=== PATIENT | female | born 1970 | race Caucasian/White ===

== ENCOUNTER 2020-06-09 23:38 | Emergency (ER) | payer OTHER ==
--- OUTSIDE RECORDS SUMMARY | 2020-06-09 23:42 | XMS REPORT | Clinical Summary ---
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 and body mass index (BMI) of 38.0 to 38.9 in adult (H CC) Hiatal hernia Essential hypertension Type 2 diabetes mellitus without complication, without long-term current use of insulin (HCC) Hypothyroidism, unspecified type PROTHROMBIN TIME WITH Routine 10/27/2019 9:46 Class 2 severe Results for this INR AM MOLD REPAIRER obesity due to procedure are in excess calories with the res ults serious comorbidity section. and body mass index (BMI) of 38.0 to 38.9 in adult (H CC) Hiatal hernia Essential hypertension Type 2 diabetes mellitus without complication, without long-term current use of insulin (HCC) Hypothyroidism, unspecified type CBC WITH PLATELET AND Routine 10/27/2019 9:46 Class 2 severe Results for this DIFFERENTIAL AM MOLD REPAIRER obesity due to procedure are in excess calories with the res ults serious comorbidity section. and body mass index (BMI) of 38.0 to 38.9 in adult (H CC) Hiatal hernia Essential hypertension Type 2 diabetes mellitus without complication, without long-term current use of insulin (HCC) Hypothyroidism, unspecified type PARATHYROID HORMONE Routine 10/27/2019 9:46 Class 2 severe Re sults for this AM MOLD REPAIRER obesity due to procedure are in excess calories with the res ults serious comorbidity section. and body mass index (BMI) of 38.0 to 38.9 in adult (H CC) Hiatal hernia Essential hypertension Type 2 diabetes mellitus without complication, without long-term current use of insulin (HCC) Hypothyroidism, unspecified type HEMOGLOBIN A1C Routine 10/27/2019 9:46 Class 2 severe Results for this AM MOLD REPAIRER obesity due to procedure are in excess calories with the res ults serious comorbidity section. and body mass index (BMI) of 38.0 to 38.9 in adult (H CC) Hiatal hernia Essential hypertension Type 2 diabetes mellitus without complication, without long-term current use of insulin (HCC) Hypothyroidism, unspecified type THYROID STIMULATING Routine 10/27/2019 9:46 Class 2 severe Re sults for this HORMONE AM MOLD REPAIRER obesity due to procedure are in excess calories with the res ults serious comorbidity section. and body mass index (BMI) of 38.0 to 38.9 in adult (H CC) Hiatal hernia Essential hypertension Type 2 diabetes mellitus without complication, without long-term current use of insulin (HCC) Hypothyroidism, unspecified type T4, FREE Routine 10/27/2019 9:46 Class 2 severe Results f or this AM MOLD REPAIRER obesity due to procedure are in excess calories with the res ults serious comorbidity section. and body mass index (BMI) of 38.0 to 38.9 in adult (H CC) Hiatal hernia Essential hypertension Type 2 diabetes mellitus without complication, without long-term current use of insulin (HCC) Hypothyroidism, unspecified type TOTAL IRON BINDING Routine 10/27/2019 9:46 Class 2 severe Res ults for this CAPACITY AM MOLD REPAIRER obesity due to procedure are in excess calories with the res ults serious comorbidity section. and body mass index (BMI) of 38.0 to 38.9 in adult (H CC) Hiatal hernia Essential hypertension Type 2 diabetes mellitus without complication, without long-term current use of insulin (HCC) Hypothyroidism, unspecified type HCG QUALITATIVE, SERUM Routine 10/27/2019 9:46 Class 2 severe Results for this SCREEN AM MOLD REPAIRER obesity due to procedure are in excess calories with the res ults serious comorbidity section. and body mass index (BMI) of 38.0 to 38.9 in adult (H CC) Hiatal hernia Essential hypertension Type 2 diabetes mellitus without complication, without long-term current use of insulin (HCC) Hypothyroidism, unspecified type LIPID PANEL Routine 10/27/2019 9:46 Class 2 severe Results f or this AM MOLD REPAIRER obesity due to procedure are in excess calories with the res ults serious comorbidity section. 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 and body mass index (BMI) of 38.0 to 38.9 in adult (H CC) Hiatal hernia Essential hypertension Type 2 diabetes mellitus without complication, without long-term current use of insulin (HCC) Hypothyroidism, unspecified type FERRITIN LEVEL Routine 10/27/2019 9:46 Class 2 severe Results for this AM MOLD REPAIRER obesity due to procedure are in excess calories with the res ults serious comorbidity section. and body mass index (BMI) of 38.0 to 38.9 in adult (H CC) Hiatal hernia Essential hypertension Type 2 diabetes mellitus without complication, without long-term current use of insulin (HCC) Hypothyroidism, unspecified type after 06/09/2019 Results Total iron binding capacity (03/28/2020 9:24 AM CDT)Only the most recent of2 resultswithin the time period is included. Pathologist Sig nature Iron level 87 40 - 190 mcg/dL [facility] Iron binding capacity 329 250 - 450 mcg/dL [facility] (calc) [facility] Iron saturation 26 16 - 45 % (calc) [facility] Specimen Blood Narrative Performed At FASTING:YES [facility] FASTING: YES Resulting Agency Comment Performing Organization Information: Site ID: RGA Name: [facility] Address: [address] [place] [phone] Director: Andrae Miguel Performing Organization Address City/State/ZIP Code Phon e Number [facility] [address] [address] Copper level, serum (03/28/2020 9:24 AM CDT)Only the most recent of2 results within the time period is included. Copper 93 70 - 175 [facility] Comment: mcg/dL ROLANDO MCCABE This test was developed and its analytical performance characteristics have been determined by [facility] [employer]. It has not been cleared or approved by [facility] FDA. This assay has been validated pursuant to the CLI A regulations and is used for clinical purposes. Specimen Blood Narrative Performed At FASTING:YES [facility] FASTING: YES Resulting Agency Comment Performing Organization Information: Site ID: [facility] Name: [facility] Address: [address] [phone] Director: Vishnu Goodman M.D., Ph. D Performing Organization Address [facility] Phon e Number [employer] [phone] [place] [address] [place] Vitamin B1 level, whole blood (03/28/2020 9:24 AM CDT)Only the most recent of2 resultswithin the time period is included. [facility] Vitamin B1, 169 78 - 185 [facility] whole blood Comment: nmol/L ROLANDO MCCABE Vitamin supplementation within 24 hours prior to blood draw may affect the accuracy of results. This test was developed and its analytical performance characteristics have been determined by [employer]. It has not been cleared or approved by [facility]. This assay has been validated pursuant to the CLI A regulations and is used for clinical purposes. Specimen Blood Narrative Performed At FASTING:YES [facility] FASTING: YES Resulting Agency Comment Performing Organization Information: Site ID: [facility] Name: [facility] Address: [address] [place] [address] Director: Vishnu Goodman M.D., Ph. D Performing Organization Address [facility] Phon e Number [employer] [phone] [place] [address] [place] Zinc level, serum (03/28/2020 9:24 AM CDT)Only the most recent of2 results within the time period is included. Zinc 72 60 - 130 [facility] Comment: mcg/dL ROLANDO MCCABE This test was developed and its analytical performance characteristics have been determined by [facility]. It has not been cleared or approved by [facility] FDA. This assay has been validated pursuant to the CLI A regulations and is used for clinical purposes. Specimen Blood Narrative Performed At FASTING:YES [facility] FASTING: YES Resulting Agency Comment Performing Organization Information: Site ID: [facility] Name: [facility]ancy chicas Address: [address] [place] [address] Director: Vishnu Goodman M.D., Ph. D Performing Organization Address [facility] Phon e Number [email or web address] [phone] [place] [address] [place] Vitamin A level, plasma or serum (03/28/2020 9:24 AM CDT)Only the most recent of2 resultswithin the time period is included. Pathologist [facility] Vitamin A 44 38 - 98 [facility] joiz (retinol) Comment: mcg/dL ROLANDO MCCABE Clin Chem Vol. 34.No.8. [id number]. 1998 Vitamin supplementation within 24 hours prior to blood draw may affect the accuracy of results. This test was developed and its analytical performance characteristics have been determined by [employer]. It has not been cleared or approved by [facility] FDA. This assay has been validated pursuant to the CLI A regulations and is used for clinical purposes. Specimen Blood Narrative Performed At FASTING:YES [facility] FASTING: YES Resulting Agency Comment Performing Organization Information: Site ID: [facility] Name: [facility]Cj[facility]rellanadarci chicas Address: [address] [place] [address] Director: Vishnu Goodman M.D., Ph. D Performing Organization Address [facility] Phon e Number [employer] [place] [address] [place] [address] [place] Vitamin D 25 hydroxy level (03/28/2020 9:24 AM CDT)Only the most recent of2 resultswithin the time period is included. Pathologist [facility] Vitamin D, 52 30 - 100 [facility] 25-hydroxy Comment: ng/mL PASTOR Vitamin D Status 25-OH Vitamin D: Deficiency: <20 ng/mL Insufficiency: 20 - 29 ng/mL Optimal: > or = 30 ng/mL For 25-OH Vitamin D testing on patients on D2-supplementation and patients for whom quantitation of D2 and D3 fractions is required, the [facility](T M) 25-OH VIT D, (D2,D3), LC/MS/MS is recommended: order code 30608 (patients >2yrs). See Note 1 Note 1 For additional information, please refer to http://education.[employer]/faq/LRV482 (This link is being provided for informational/ educational purposes only.) Specimen Blood Narrative Performed At FASTING:YES [facility] FASTING: YES Resulting Agency Comment Performing Organization Information: Site ID: [facility]GA Name: [facility] Address: [address] [place] [phone] Director: Andrae Miguel Performing Organization Address City/State/ZIP Code Phon e Number [employer] [place] [address] [place] [address] CBC with platelet and differential (03/28/2020 9:24 AM CDT)Only the most recent of5 resultswithin the time period is included. Pathologist Sig nature WBC 6.0 3.8 - 10.8 [facility] Thousand/uL [place] RBC 5.09 3.80 - 5.10 [facility] Million/uL [place] HGB 14.6 11.7 - 15.5 [facility] g/dL [place] HCT 44.5 35.0 - 45.0 % [facility] MCV 87.4 80.0 - 100.0 fL [facility] [place] MCH 28.7 27.0 - 33.0 pg [facility] [place] MCHC 32.8 32.0 - 36.0 [facility] g/dL [place] RDW 14.2 11.0 - 15.0 % [facility] Platelet count 187 140 - 400 [facility] Thousand/uL [place] MPV 12.5 7.5 - 12.5 fL [facility] Neutrophils, absolute 3,774 1,500 - 7,800 [facility] cells/uL [place] Lymphocytes, absolute 1,452 850 - 3,900 [facility] cells/uL [place] Monocytes, absolute 612 200 - 950 [facility] cells/uL [place] Eosinophils, absolute 120 15 - 500 [facility] cells/uL [place] Basophils, absolute 42 0 - 200 [facility] cells/uL [place] Neutrophils 62.9 % [facility] [place] Lymphocytes 24.2 % [facility] [place] Monocytes 10.2 % [facility] [place] Eosinophils 2.0 % [facility] [place] Basophils + RC 0.7 % [facility] Specimen Blood Narrative Performed At FASTING:YES [facility] FASTING: YES Resulting Agency Comment Performing Organization Information: Site ID: RGA Name: [facility] Address: [address] [place] [phone] Director: Andrae Miguel Performing Organization Address [facility] Phon e Number [place] [address] T3 (03/28/2020 9:24 AM CDT)Only the most recent of2 resultswithin the time period is included. Pathologist Sig nature T3 119 76 - 181 ng/dL [facility] [place] Specimen Blood Narrative Performed At FASTING:YES [facility] FASTING: YES Resulting Agency Comment Performing Organization Information: Site ID: [facility] Name: [facility] Address: [address] [place] [phone] Director: Andrae Miguel Performing Organization Address [facility] Phon e Number [employer] [place] [phone] Thyroid stimulating hormone (03/28/2020 9:24 AM CDT)Only the most recent of2 resultswithin the time period is included. Pathologist Sig nature TSH 2.57 mIU/L [facility] Comment: [place] Reference Range > or = 20 Years 0.40-4.50 Ranges First trimester 0.26-2.66 Second trimester 0.55-2.73 Third trimester 0.43-2.91 Specimen Blood Narrative Performed At FASTING:YES [facility] FASTING: YES Resulting Agency Comment Performing Organization Information: Site ID: A Name: [facility] Address: [address] [place] [phone] Director: Andrae Miguel Performing Organization Address [facility] Phon e [place] [address] T4, free (03/28/2020 9:24 AM CDT)Only the most recent of2 resultswithin the time period is included. Pathologist Sig nature T4, free 1.0 0.8 - 1.8 ng/dL [facility] DEETH Specimen Blood Narrative Performed At FASTING:YES [facility] FASTING: YES Resulting Agency Comment Performing Organization Information: Site ID: RGA Name: [facility] Address: [address] [place] [address] Director: Andrae Miguel Performing Organization Address City/[facility] Phon e Number LIN[facility] [employer] [employer] [place] DE[place] [address] [place] [address] Parathyroid hormone (03/28/2020 9:24 AM CDT)Only the most recent of2 results within the time period is included. PTH 19 14 - 64 pg/mL [facility] Comment: [employer] SolutionsSOFIA G II Interpretive Guide Intact PTH Calc ium ---- --- Normal Parathyroid Normal No rmal Hypoparathyroidism Low or Low Normal Low Hyperparathyroidism Primary Normal or High H igh Secondary High Normal or Low Tertiary High High Non-Parathyroid Hypercalcemia Low or Low Normal High Specimen Blood Narrative Performed At FASTING:YES [facility] FASTING: YES Resulting Agency Comment Performing Organization Information: Site ID: IG Name: [facility] Address: [address] [place] [address] Director: Dr. Andrae musa Performing Organization Address [facility] Phon e Number [address] [address] Hemoglobin A1c (03/28/2020 9:24 AM CDT)Only the most recent of2 resultswithin the time period is included. Hemoglobin A1C 5.6 <5.7 % of [facility] Comment: total Hgb PASTOR For the purpose of screening for the presence of diabetes: <5.7% Consistent with the absence of diabetes 5.7-6.4% Consistent with increased risk for diabe shavon (prediabetes) > or =6.5% Consistent with diabetes This assay result is consistent with a decreased risk of diabetes. Currently, no consensus exists regarding use of hemoglobin A1c for diagnosis of diabetes in children. According to [place] Diabetes Association (ADA) guidelines, hemoglobin A1c <7.0% represents optimal control in non- diabetic patients. Different metrics may apply to specific patient populations. Standards of Medical Care in Diabetes(ADA). Specimen Blood Narrative Performed At FASTING:YES [facility] FASTING: YES Resulting Agency Comment Performing Organization Information: Site ID: RGA Name: [facility] Address: [address] [place], [place] [id number] Director: Andrae Miguel Performing Organization Address [facility] Phon e Number [facility] [address] Folate level (03/28/2020 9:24 AM CDT)Only the most recent of2 resultswithin the time period is included. Pathologist Sig nature Folate >24.0 ng/mL [facility] Comment: DE[place] Reference Rang e Low: <3.4 Borderline: 3.4-5.4 Normal: >5.4 Specimen Blood Narrative Performed At FASTING:YES [facility] FASTING: YES Resulting Agency Comment Performing Organization Information: Site ID: [facility] Name: [facility] Address: [address] [place] [phone] Director: Andrae Miguel Performing Organization Address [facility] Phon e [place] [address] Ferritin level (03/28/2020 9:24 AM CDT)Only the most recent of2 resultswithin the time period is included. Pathologist Sig nature Ferritin level 51 16 - 232 ng/mL [facility] [place] Specimen Blood Narrative Performed At FASTING:YES [facility] FASTING: YES Resulting Agency Comment Performing Organization Information: Site ID: RGA Name: [facility] Address: [address] [place] [phone] Director: Andrae Miguel Performing Organization Address [facility] Phon e Number [place] [address] Vitamin B12 level (03/28/2020 9:24 AM CDT)Only the most recent of2 results within the time period is included. Pathologist Sig nature Vitamin B12 426 200 - 1,100 pg/mL [facility] [place] Specimen Blood Narrative Performed At FASTING:YES [facility] FASTING: YES Resulting Agency Comment Performing Organization Information: Site ID: [facility]GA Name: [facility] Address: [address] [place] [phone] Director: Andrae Miguel Performing Organization Address City/[facility] Phon e Number [facility] [place] [address] [place] [address] [phone] Lipid panel (03/28/2020 9:24 AM CDT)Only the most recent of2 resultswithin the time period is included. Pathologist [facility] Cholesterol, total 149 <200 mg/dL [facility] HDL cholesterol 33 (L) > OR = 50 [facility] mg/dL DE[facility] Triglycerides 125 <150 mg/dL [facility] [facility] LDL cholesterol 93 mg/dL (calc) [facility] calculated Comment: DEETH Reference range: <100 Desirable range <100 mg/dL for primary prevention; <70 mg/dL for patients with CHD or diabetic patients with > or = 2 CHD risk factors. LDL-C is now calculated using the Pradip calculation, which is a validated novel method providi ng better accuracy than the Friedewald equation in the estimation of LDL-C. Jeremiah MCGUIRE et al. KATIANA. 2013;310(19): 8090-1597 (http://education.[employer]/faq/WAM879) Cholesterol/HDL 4.5 <5.0 (calc) [facility] ratio DEETH Non-HDL cholesterol 116 <130 mg/dL [facility] Comment: (calc) DEETH For patients with diabetes plus 1 major ASCVD risk factor, treating to a non-HDL-C goal of <100 mg/dL (LDL-C of <70 mg/dL) is considered a therapeutic option. Specimen Blood Narrative Performed At FASTING:YES [facility] FASTING: YES Resulting Agency Comment Performing Organization Information: Site ID: [facility] Name: [facility] Address: [address] [place] [phone] Director: Andrae Miguel Performing Organization Address City/State/[facility] Phon e Number [employer] [place] [address] [place] [address] [phone] Comprehensive metabolic panel (03/28/2020 9:24 AM CDT)Only the most recent of2 resultswithin the time period is included. Pathologist [facility] Glucose 95 65 - 99 [facility] Comment: mg/dL DEETH Fasting reference interval BUN 12 7 - 25 mg/dL [facility] Creatinine 0.83 0.50 - 1.10 [facility] mg/dL [facility] EGFR Non-Afr. 83 > OR = 60 [facility] Malaysian mL/min/1.73m DEETH 2 EGFR 96 > OR = 60 [facility] Malaysian mL/min/1.73m DEETH 2 BUN/creatinine NOT APPLICABLE 6 - 22 [facility] ratio (calc) DE[facility] Sodium 140 135 - 146 [facility] mmol/L [facility] Potassium 4.1 3.5 - 5.3 [facility] mmol/L [facility] Chloride 108 98 - 110 [facility] mmol/L [facility] CO2 24 20 - 32 [facility] mmol/L [facility] Calcium 9.6 8.6 - 10.2 [facility] mg/dL [facility] Protein 6.6 6.1 - 8.1 [facility] g/dL [facility] Albumin, S 3.9 3.6 - 5.1 [facility] g/dL [facility] Globulin, total 2.7 1.9 - 3.7 [facility] g/dL (calc) DE[facility] Albumin/globulin 1.4 1.0 - 2.5 [facility] ratio (calc) [facility] Total bilirubin 0.4 0.2 - 1.2 [facility] mg/dL DE[facility] Alkaline 72 31 - 125 U/L [facility] phosphatase DEETH AST 16 10 - 35 U/L [facility] DE[facility] ALT 24 6 - 29 U/L [facility] DE[facility] Specimen Blood Narrative Performed At FASTING:YES [facility] FASTING: YES Resulting Agency Comment Performing Organization Information: Site ID: RGA Name: [facility] Address: [address] [place] [phone] Director: Andrae Miguel Performing Organization Address City/[facility] [place] [address] XR Shoulder 2+ Vw Right (02/02/2020 8:36 AM CDT) Specimen Narrative Performed At This result has an attachment that is no t available. Three-view projection of the right shoulder shows a skeletally mature HM RADIANT individual with 14 mm of subacromial space and a type I acromion. The AC joint is well-maintained. The Y-view shows a locatio n of the joint with no evidence of any glenohumeral erosions on the transa xillary view. Performing Organization Address City/[facility]/ZIP Code Phon e Number LEISA [address] [place] [address] Estimated GFR (01/07/2020 5:22 AM CDT)Only the most recent of3 resultswithin the time period is included. Estimated GFR 86 mL/min/1.73 [facility] Comment: m2 [place] Catergory Units Interpretation [facility]OS [facility]ITAL G1 >=90 Normal or high G2 60-89 Mildly decreased G3a 45-59 Mildly to moderately decreas ed G3b 30-44 Moderately to severely decre ased G4 15-29 Severely decreased G5 <15 Kidney failure The eGFR was calculated using the Chronic Kidney Disea se Epidemiology Collaboration (CKD-EPI) equation. Interpretation is based on recommendations of the National Kidney Foundation-Kidney Disease Outcomes Alejandro lity Initiative (NKF-KDOQI) published in 2014. Specimen Performing Organization Address [facility] Phon e Number [facility] DEPARTMENT OF PATHOLOGY AND [address] [place] [address] Basic metabolic panel (01/07/2020 5:22 AM CDT)Only the most recent of3 results within the time period is included. Pathologist Sig nature Sodium 141 135 - 148 mEq/L [facility] Potassium 4.3 3.5 - 5.0 mEq/L [facility] Chloride 104 98 - 112 mEq/L [facility] CO2 24 24 - 31 mEq/L [facility] Anion gap 13@ANIO 7 - 15 mEq/L [facility] BUN 12 6 - 20 mg/dL [facility] Creatinine 0.80 0.50 - 0.90 mg/dL [facility] Glucose 117 (H) 65 - 99 mg/dL [facility] Calcium 8.6 8.3 - 10.2 mg/dL [facility] Specimen Blood Performing Organization Address [facility] Phon e Number [facility]Y AND [address] [place] [address] [place] [address] POC glucose (01/06/2020 12:44 PM CDT)Only the most recent of2 resultswithin the time period is included. Pathologist Sig nature POC glucose 169 (H) 65 - 99 mg/dL KEV PENDLETON Comment: [facility] Glass Cleaning Machine Tender Name: Kimberly Traylor Device ID: [id number] Specimen Blood Performing Organization Address [facility] Phon e Number [facility] DEPARTMENT OF PATHOLOGY AND [id number] [place] [id number] [place] [address] Airway (01/06/2020 7:35 AM CDT) Narrative Performed At Toña Bailey NP 01/06/2020 7:36 AM Airway Performed by: Toña Bailey NP Authorized by: Steven Dunne MD Location: OR Urgency: Elective Difficult Airway: No Anesthesiologist: Steven Dunne MD Resident/[employer]/AA: Toña Bailey NP Performed by: resident/[employer]/AA Preoxygenated with 100% O2: Yes Mask Ventilation: Easy mask Final Airway Type: Endotracheal airway Final Endotracheal Airway: ETT Technique Used: Direct laryngoscopy Devices/Methods Used in Placement: Int ubating stylet Insertion Site: Oral Blade Type: Aguilar Laryngoscope Blade/Videolaryngoscope Pedro de Size: 2 ETT Size (mm): 7.0 Measured from: Lips ETT to Lips (cm): 21 Placement Verified by: CO2 detection, di rect visualization and equal breath sounds Laryngoscopic view: Grade IIb - view o f arytenoids or posterior of glottis only Rapid Sequence Induction (RSI): No Number of Attempts at Approach: 1 hCG qualitative, urine screen (01/06/2020 6:14 AM CDT) hCG qualitative, Negative Negative KEV PENDLETON urine Comment: [place] The manufacturers stated sensitivity of HcG test for s jhonathan is >/= 10 HOSPITAL mIU/ml and urine is >/= 20mIU/ml. Specimen Urine Performing Organization Address [facility] Phon e Number [facility] DEPARTMENT OF PATHOLOGY AND [id number] [place] [address] [place] [address] [facility] MEDICINE [facility] [address] COVID BioRef (NCOVB) (12/28/2019 2:25 PM CDT) COVID BioRef Not Detected Not Detected BigpointST. MARY'S HOSPITALFlypad [facility] (NCOVB) Comment: Source Nasopharyngeal Swab Testing performed at [facility] [address] [place] [address] NOTE: Please consider re-collection of a new specimen, if clinically indicated. NOTE: The COVID-19 assay has been cleared by the U.S. Food and Drug Administration under the Emergency Use Authorization ( EUA). [employer] northeastPipelinefx [facility] is designated as a high complexity labora tory by the Clinical Laboratory Improvement Amendments of 1988(CLIA) and is qualified to perform this test. ASSAY INFORMATION: Real Time RT-PCR Specimen Nasopharyngeal Narrative Performed At Is this for pre-procedure assessment?->Yes [facility] OF PATHOLOGY AND GENOMIC MEDICINE Performing Organization Address City/[facility]/ZIP Code Phon e Number [facility] DEPARTMENT OF PATHOLOGY [address] [place] [address] AND [employer] MEDICINE [facility] [address] [place] [address] ECG 12 lead (12/28/2019 2:11 PM CDT) Pathologist Sig nature Ventricular rate 95 [facility] Atrial rate 95 [facility] MA interval 150 [facility] QRSD interval 72 [facility] QT interval 352 [facility] QTC interval 442 [facility] P axis 1 31 [facility] QRS axis 1 2 [facility] T wave axis 40 [facility] EKG impression Normal sinus rhythm-Low [facility] voltage QRS-Cannot rule out Anterior infarct , age undetermined-Abnormal ECG-No previous ECGs available-Electronicall y Signed By Mendoza Donaldson MD ([id number]) on 12/28/2019 5:04:01 PM Specimen Narrative Performed At This result has an attachment that is no t available. Performing Organization Address City/State/ZIP Code Phon e Number [facility] MUSE [address] [place] [address] Type and screen (12/28/2019 1:55 PM CDT) Pathologist Sig nature ABO grouping O [facility] Rh type POS [facility] Antibody screen (gel) NEG [facility] Specimen Blood Performing Organization Address City/State/ZIP Code Phon e Number [facility] DEPARTMENT OF PATHOLOGY AND [address] [place] [address] [place] [address] GENOMIC MEDICINE [facility] [address] [place] [address] [facility] Referral to Weight Management-Bariatric Services (11/11/2019 1:55 PM CDT)US Abdomen Complete (11/02/2019 8:08 AM CDT) Specimen Narrative Performed At EXAM: US ABDOMEN COMPLETE RADIANT TECHNIQUE: Grayscale and color Doppler sonographic sourav luation of the abdomen. GIVEN INDICATION: E66.01 Morbid (severe) obesity due to excess calories, Z68.38 Body mass index (bmi) 38.0-38.9 gerry lt, Cirrhosis or Fatty Liver COMPARISON: None. IMPRESSION: Liver: The liver is normal in contour and echogenicity without focal mass or intrahepatic biliary ductal dilatation. Subcen timeter left hepatic lobe cyst. Ascites: None. Right pleural effusion: None Gallbladder: There is no cholelithiasis. CBD: The common bile duct measures 5 m m, within normal limits. Portal vein: The portal vein is patent with hepatopeta l flow. The main portal vein measures 1.0 cm in caliber. Pancreas: The visualized portions of the pancreas ar e within normal limits. Spleen: The spleen is homogeneous and not enlarged measuring 10.1 cm. Right Kidney: The right kidney is normal in size and echogenicity. There is no evidence of mass, calculi, or hydronephros is. The right kidney measures 9.4 cm. Left Kidney: There is a 2.2 cm simple left renal cys t. The left kidney measures 10.1 cm. Aorta: Obscured by bowel gas. IVC: The visualized portions of the inferior vena ca va are unremarkable. SUMMARY: Liver is normal in contour and echogenic ity. [facility]-[id number] Procedure Note Interface, Radiology Results Incoming - 11/02/2019 8:21 AM CDT EXAM: US ABDOMEN COMPLETE TECHNIQUE: Grayscale and color Doppler s onographic evaluation of the abdomen. GIVEN INDICATION: E66.01 Morbid (severe ) obesity due to excess calories, Z68.38 Body mass index (bmi) 38.0-38.9 adult, Cirrhosis or Fatty Liver COMPARISON: None. IMPRESSION: Liver: The liver is normal in contour an d echogenicity without focal mass or intrahepatic biliary ductal dilatation. Subcentimeter left hepatic lobe cyst. Ascites: None. Right pleural effusion: None Gallbladder: There is no cholelithiasis. CBD: The common bile duct measures 5 mm , within normal limits. Portal vein: The portal vein is patent w ith hepatopetal flow. The main portal vein measures 1.0 cm in caliber. Pancreas: The visualized portions of th e pancreas are within normal limits. Spleen: The spleen is homogeneous and n ot enlarged measuring 10.1 cm. Right Kidney: The right kidney is kat l in size and echogenicity. There is no evidence of mass, calculi, or hydronephrosis. The right kidney measures 9.4 cm. Left Kidney: There is a 2.2 cm simple l eft renal cyst. The left kidney measures 10.1 cm. Aorta: Obscured by bowel gas. IVC: The visualized portions of the inf erior vena cava are unremarkable. SUMMARY: Liver is normal in contour and echogenic ity. [facility]-[id number] Performing Organization Address City/[facility]/ZIP Code Phon e Number [facility] [address] [place] [address] Insulin, random (10/27/2019 9:46 AM MOLD REPAIRER) Pathologist Sig nature Insulin 17.8 uIU/mL [facility] Comment: Stem Reference Range < or = 19.6 II Risk: Optimal < or = 19.6 Moderate NA High >19.6 Adult cardiovascular event risk category cut points (optimal, moderate, high) are based on [employer] population data from 07/2011. This insulin assay shows strong cross-reactivity for some insulin analogs (lispro, aspart, and glargine) and much lower cross-reactivity with others (detemir, glulisine). Specimen Blood Narrative Performed At FASTING:YES [facility] FASTING: YES Resulting Agency Comment Performing Organization Information: Site ID: [id number] Name: [facility] Address: [address] [place] [address] Director: Dr. Andrae musa Performing Organization Address City/[facility] Phon e Number [facility] [address] [place] [place] [address] [phone] Urinalysis, automated with microscopy (10/27/2019 9:46 AM MOLD REPAIRER) Color, UA YELLOW YELLOW [employer] DEETH Appearance CLEAR CLEAR [facility] DEETH Specific gravity, 1.017 1.001 - 1.035 [facility] urine DEETH pH, urine 8.0 5.0 - 8.0 [facility] DEETH Glucose, urine NEGATIVE NEGATIVE [facility] DEETH Bilirubin, UA NEGATIVE NEGATIVE [facility] DEETH Ketones, UA NEGATIVE NEGATIVE [facility] DEETH Occult blood, urine NEGATIVE NEGATIVE [facility] DEETH Protein, UA NEGATIVE NEGATIVE [facility] DEETH Nitrite, UA NEGATIVE NEGATIVE [facility] DEETH Leukocyte esterase, NEGATIVE NEGATIVE [facility] UA DEETH WBC, UA NONE SEEN < OR = 5 /HPF [facility] DEETH RBC, UA NONE SEEN < OR = 2 /HPF [facility] DEETH Squamous epithelial 0-5 < OR = 5 /HPF [facility] cells, UA DEETH Bacteria, UA NONE SEEN NONE SEEN /HPF [facility] DEETH Hyaline casts, UA NONE SEEN NONE SEEN /LPF [facility] DEETH Specimen Urine Narrative Performed At FASTING:YES [facility] FASTING: YES Resulting Agency Comment Performing Organization Information: Site ID: [id number] Name: [facility] Address: [address] [place] [phone] Director: Andrae Miguel Performing Organization Address [facility] [place] [address] Partial thromboplastin time, activated (10/27/2019 9:46 AM MOLD REPAIRER) PTT 29 22 - 34 sec [employer] Comment: DEETH This test has not been validated for monitoring unfractionated heparin therapy. For testing that is validated for this type of therapy, please refer to the Heparin Anti-Xa assay (test code 21037). For additional information, please refer to http://education.[employer]/faq/OXN160 (This link is being provided for informational/educational purposes only.) Specimen Blood Narrative Performed At FASTING:YES [facility] FASTING: YES Resulting Agency Comment Performing Organization Information: Site ID: [id number] Name: [facility] Address: [address] [place] [phone] Director: Andrae Miguel Performing Organization Address [facility] [place] [address] Prothrombin time with INR (10/27/2019 9:46 AM MOLD REPAIRER) INR 0.9 [facility] Comment: DEETH Reference Range 0.9-1.1 Moderate-intensity Warfarin Therapy 2.0-3.0 Higher-intensity Warfarin Therapy 3.0-4.0 Prothrombin time 9.6 9.0 - 11.5 [facility] Comment: [place] KEV For more information on this test, go to: http://education.[employer]/faq/QQA819 Specimen Blood Narrative Performed At FASTING:YES [facility] FASTING: YES Resulting Agency Comment Performing Organization Information: Site ID: [id number] Name: [facility] Address: [address] [place] [phone] Director: Andrae Miguel Performing Organization Address City/[facility] [place] [address] C-reactive protein (10/27/2019 9:46 AM MOLD REPAIRER) Pathologist [facility] nature CRP 4.3 <8.0 mg/L [facility] DEETH Specimen Blood Narrative Performed At FASTING:YES [facility] FASTING: YES Resulting Agency Comment Performing Organization Information: Site ID: [id number] Name: [facility] Address: [address] [place] [phone] Director: Andrae Miguel Performing Organization Address [facility] [place] [address] hCG qualitative, serum screen (10/27/2019 9:46 AM MOLD REPAIRER) Pathologist [facility] hCG qualitative, NEGATIVE See Note: [facility] serum Comment: DEETH Reference Range: Reference Range Non-: Negative : Positive Specimen Blood Narrative Performed At FASTING:YES [facility] FASTING: YES Resulting Agency Comment Performing Organization Information: Site ID: [id number] Name: [facility] Address: [address] [place] [phone] Director: Andrae Miguel Performing Organization Address [facility] [place] [address] after 06/09/2019 Insurance Payer Benefit Plan / Subscriber ID Effective Dates Phone Addre ss Type Group WORKERS COMP [employer] RISK [id number] 2016-[place] [employer] MANAGEMENT nt [employer] CIGNA OPEN [id number] 2010-Dennys [place] ACCESS/NETWORK t Advance Directives For more information, please contact: [phone] Type Date Recorded Patient Cma Explanati on Advance Directives, Living Will 12/28/2019 1:46 PM and Medical Power of Steam Box Tender Code Status Date Activated Date Inactivated Comments Full Code 01/06/2020 2:24 PM 01/07/2020 6:23 PM Code Status decision reached by: Patient
--- OUTSIDE RECORDS SUMMARY | 2020-06-09 23:42 | XMS REPORT | Continuity of Care Document ---
:1970 Author Organization [facility] Care Team Providers Name Role Phone [facility] Unavailable Un available Problems Problem Status Onset Classification Date Comments Sourc e Date Reported CERVICAL Active [address] Medications No Data Provided for This Section Allergies, Adverse Reactions, Alerts No Known Medication Allergies Immunizations No Data Provided for This Section Results No Data Provided for This Section Pathology Reports No Data Provided for This Section Diagnostic Reports No Data Provided for This Section Consultation Notes No Data Provided for This Section Discharge Summaries No Data Provided for This Section History and Physicals No Data Provided for This Section Vital Signs No Data Provided for This Section Encounters Location Location Encounter Encounter Reason Attending ADM [place] Stat Source Details Type Number For Provider Date Date Visit [facility] OP Therapy [id number] Andriy 11/10 12/10 [facility] Patients [facility] OP Therapy [id number] Andriy 12/16 01/15 [facility] Patients [facility] Procedures No Data Provided for This Section Assessment and Plan No Data Provided for This Section Plan of Care No Data Provided for This Section Social History Social History Date Source No data available for this 01/15/2019 [facility] section Family History No Data Provided for This Section Advance Directives No Data Provided for This Section Functional Status No Data Provided for This Section
--- OUTSIDE RECORDS SUMMARY | 2020-06-09 23:43 | XMS REPORT | Continuity of Care Document ---
:1970 Author Organization [facility] t Address [address] [place] [address] Care Team Providers Name Role Phone Gemma ESPOSITO Primary Care Physician Sebastian Paul MD Attending Clinician Aneesh ESPOSITO, RDaphne Attending Clinician Rico ALEJANDRA Attending Clinician Unavailable Uzair ESPOSITO Attending Clinician Corey HOFFMAN Attending Clinician Unavailable Maryuri Reyna MA Attending Clinician Unavailable Roosevelt Russell MA Attending Clinician Unavailable Provider Attending Clinician Unavailable Gemma ESPOSITO Attending Clinician Gregoria ALEJANDRA, L Attending Clinician Unavailable Erinn ERICKSON Attending Clinician Unavailable Claus Whatley Attending Clinician HUMBERTO Admitting Clinician Unavailable Payers Payer Name Policy Type Policy Effective Date Expiration Date Sour ce Number WORKERS [id number] 2016 [place] COMPTRISTAR RISK 00:00:00 Methodis t [id number] -Presen tWorkers Comp CIGNACIGNA OPEN [id number] 2010 [place] ACCESS/NETWORKxxx 00:00:[address] [id number]/1/2011- PresentHMO Problems Condition Condition Condition Status Onset Resolution Last Treating Co mments Source Name Details Category Date Date Treatment Clinician Date History of History of Disease Active [place] repair of repair of 5-20 Meth dante hiatal hiatal 00:00: st hernia hernia 00 S/P S/P Disease Active [place] gastric gastric 5-15 Methodi bypass bypass 00:00: st 00 Class 1 Class 1 Disease Active [place] obesity obesity 3-02 Methodi due to due to 00:00: st excess excess 00 calories calories with with serious serious comorbidit comorbidit y and body y and body mass index mass index (BMI) of (BMI) of 32.0 to 32.0 to 32.9 in 32.9 in adult adult CERVICAL Diagnosis Active 2018-12-16 M emoria 11-10 07:22:00 l CERVICAL 08:00: Rai n 00 Active 11/10/2018 [facility] Hypertensi Hypertensi Disease Active Overview : [place] on on denies Methodi CP/SOB st Type 2 Type 2 Disease Active Overview: Shweta dumont diabetes diabetes dx Method i mellitus mellitus 08/23/16 st BS-ave-? Hypothyroi Hypothyroi Disease Active [place] dism dism Methodi st History of Past Illness Condition Condition Condition Status Onset Resolution Last Treating Co mments Source Name Details Category Date Date Treatment Clinician Date Hiatal Hiatal Disease Resolve 2020-01-07 2020-01-07 [place] hernia hernia d 00:00:00 10:38:[address] Allergies, Adverse Reactions, Alerts Allergy Allergy Status Severity Reaction(s) Onset Inactive Treating Comm ents Source Name Type Date Date Clinician Ursodiol Propensi Active Rash Estellato n ty to 6-10 Methodi adverse 00:00: st reaction 00 s to drug Codeine Propensi Active Anaphylaxis [place] ty to 3-29 heart Methodi adverse 00:00: rate,SOB st reaction 00 s to drug Latex Propensi Active Anaphylaxis [place] st[place] ty to 3-29 Methodi adverse 00:00: st reaction 00 s to drug Family History Family Member Diagnosis Comments Start Date Stop Date Source Natural brother Diabetes [place] M ethodist Maternal grandmother Diabetes [place] Muslim Natural mother Arthritis [place] Me thodist Natural mother Asthma [place] [facility] Natural mother Diabetes [place] [facility] th[facility]ist Natural mother Ulcerative colitis [place] Muslim Social History Social Habit Start Date Stop Date Quantity Comments Source History [facility] Meth odist Alcohol Std Drinks History [facility] Meth odist Alcohol Binge Sex Assigned At F Kev Champion ethodist Tobacco use and 2020-04-10 2020-04-10 Never used Kev Champion ethodist exposure 00:00:00 00:00:00 Alcohol intake 2020-04-10 2020-04-10 Current drinker [place] 00:00:00 00:00:00 of alcohol (finding) History SDOH 2020-01-06 2020-01-06 1 Kev Meth odist Alcohol Frequency 00:00:00 00:00:00 Alcohol Comment 2020-01-06 2020-01-06 rarely Kev Champion ethodist 00:00:00 00:00:00 Social History 2019-01-15 2019-01-15 [facility] 04:59:00 04:59:00 Smoking Status Start Date Stop Date Source Never smoker Kev Kellyis t Medications Ordered Filled Start Stop Current Ordering Indication Dosage Frequency Signature Comments Components Source Medication Medication Date Date Medication? Clinician (SIG) Name Name furosemide 2020-0 Yes 40mg QD Take 40 mg [place] (LASIX) 40 8-17 by mouth Metho di mg tablet 11:12: daily. st 01 POTASSIUM 2020-0 Yes 10meq QD Take 10 [place] ORAL 8-17 mEq by Methodi 11:12: mouth st 01 daily. levothyroxi 2020-0 Yes 250ug QD Take 250 [place] ne 8-17 mcg by Methodi (SYNTHROID, 11:12: mouth st LEVOXYL) 01 every 125 mcg morning. tablet amitriptyli 2020-0 Yes 25mg QD Take 25 mg Ang[place] ne (ELAVIL) 8-17 by mouth Meth dante 25 MG 11:12: nightly. st tablet 01 medroxyPROG 2020-0 Yes 150mg Q90D Inject 150 [place] ESTERone 8-17 mg into Methodi (DEPO-PROVE 11:12: the st RA) 150 01 shoulder, mg/mL thigh, or injection buttocks every 3 (three) months. cycloSPORIN 2020-0 Yes 1[drp] Q12H Apply 1 [place] E 8-17 drop to Methodi (RESTASIS) 11:12: eye every st 0.05 % 01 12 ophthalmic (twelve) emulsion hours. cyanocobala 2020-0 Yes 1000ug QD Take 1,000 [place] min 8-17 mcg by Methodi (VITAMIN 11:12: mouth st B-12) 1000 01 daily. MCG tablet traMADoL 2019- No TAKE 1 TO Bong stotim (ULTRAM) 50 5-28 06-02 2 TABLETS Me thodi mg tablet 00:00: 23:[address] 00 :00 EVERY 6 HOURS NEEDED FOR MODERATE PAIN OR SEVERE PAIN FOR UP TO 5 DAYS traMADoL 2019- 2020- No acute pain 50mg Q6H Take 1-2 [place] (Ultram) 50 5-20 05-28 tablets Meth dante mg tablet 00:00: 00:00 (50-100 mg s t 00 :00 total) by mouth every 6 (six) hours as needed for moderate pain or severe pain for up to 5 days .acute pain. METFORMIN 2019-2019- No 500mg QD Take 500 [place] HCL 5-15 05-15 mg by Methodi (GLUCOPHAGE 14:23: 00:[address] ORAL) 19 :00 nightly. scopolamine 2019- No 1{patch Q72H Place 1 [place] (Transderm- 5-05 05-11 } patch on Met hodi Scop) 1 mg 00:00: 23:[address] over 3 days 00 :00 every third day for 6 days. traMADoL 2019- No acute pain 50mg Q6H Take 1-2 [place] (Ultram) 50 5-01 05-06 tablets Meth dante mg tablet 00:00: 23:59 (50-100 mg s t 00 :00 total) by mouth every 6 (six) hours as needed for moderate pain for up to 5 days .acute pain. ondansetron 2019-0 Yes 4mg Q6H Take 1 [place] (ZOFRAN) 4 4-23 tablet (4 Meth dante MG tablet 00:00: mg total) st 00 by mouth every 6 (six) hours as needed for nausea or vomiting. omeprazole 2019- 2020- No 40mg QD Take 1 [place] (PriLOSEC) 4-23 10-20 capsule Metho di 40 MG 00:00: 23:59 ([address] capsule 00 :00 total) by mouth daily for 180 days. ursodioL 2019-2019- No 300mg Q.5D Take 1 [place] (ACTIGALL) 4-23 06-10 capsule Metho di 300 mg 00:00: 00:00 ([address] capsule 00 :00 total) by mouth 2 (two) times a day for 180 days. promethazin 2020-0 2020- No 25mg Q6H Take 1 B[place] e 12-15- tablet (25 Methodi (PHENERGAN) 00:00: 23:59 mg total) st 25 MG 00 :00 by mouth tablet every 6 (six) hours as needed for nausea or vomiting for up to 30 days. enoxaparin 2020-0 2020- No 40mg Q24H Inject 0.4 [place] (LOVENOX) 12-15- mL (40 mg Meth dante 40 mg/0.4 00:00: 23:59 total) st mL syringe 00 :00 under the skin daily for 14 days. scopolamine 2020-0 2020- No 1{patch Place 1 [place] (Transderm- 12-14 } patch on Met hodi Scop) 1 mg 00:00: 00:[address] over 3 days 00 :00 once as needed (nausea) for up to 1 dose. enoxaparin 2019-0 2020- No 40mg Q24H Inject 0.4 [place] (LOVENOX) 12-14 mL (40 mg Meth dante 40 mg/0.4 00:00: 00:00 total) st mL syringe 00 :00 under the skin daily for 14 days. omeprazole 2019-0 2020- No 40mg QD Take 1 [place] (PriLOSEC) 12-14 capsule Metho di 40 MG 00:00: 00:00 ([address] capsule 00 :00 total) by mouth daily for 180 days. ondansetron 2019-0 2020- No 4mg Q6H Take 1 [place] (ZOFRAN) 4 12-14 tablet (4 Met hodi MG tablet 00:00: 00:00 mg total) st 00 :00 by mouth every 6 (six) hours as needed for nausea or vomiting. promethazin 2020-0 2020- No 25mg Q6H Take 1 Bong ston e -14 12-23 tablet (25 Methodi (PHENERGAN) 00:00: 00:00 mg total) st 25 MG 00 :00 by mouth tablet every 6 (six) hours as needed for nausea or vomiting for up to 30 days. ursodioL 2020-0 2020- No 300mg Q.5D Take 1 [place] (ACTIGALL) 12-14 capsule Metho di 300 mg 00:00: 00:00 ([address] capsule 00 :00 total) by mouth 2 (two) times a day for 180 days. BACILLUS 2019- No Take by [place] COAGULANS 12-13 mouth. Methodi (PROBIOTIC, 13:05: 00:00 st B. 03 :00 COAGULANS, ORAL) simvastatin 2019- No 20mg QD Take 20 mg [place] (ZOCOR) 20 12-13 by mouth Meth dante MG tablet 13:04: 00:[address] 21 :00 dexlansopra 2019- No 60mg QD Take 60 mg [place] zole 12-13 by mouth [facility] (DEXILANT) 13:03: 00:[address] 60 mg 17 :00 capsule ibuprofen-f 2019- No [place] amotidine 08-31 Methodi (DUEXIS) 00:00: 00:00 st 800-26.6 mg 00 :00 tablet cholecalcif Yes 1{tbl} QD Take 1 [place] feroz, 6-26 tablet by Methodi vitamin D3, 00:00: mouth st (VITAMIN 00 daily. D3) 125 mcg (5,000 unit) tablet rosuvastati Yes 5mg QD Take 5 mg [place] n (CRESTOR) 5 by mouth Meth dante 5 MG tablet 00:00: nightly. st 00 telmisartan Yes 1{tbl} QD 1 tablet [place] -hydrochlor 2-11 daily. Method i othiazid 00:00: st (MICARDIS 00 HCT) 40-12.5 mg per tablet multivit,ir 2019- No [place],minerals 03-25 05-15 Methodi /lutein 00:00: 00:00 st (CENTRUM 00 :00 SILVER ULTRA WOMEN'S ORAL) vit Yes 1{capsu Q.5D Take 1 [place] C,E-Zn-gwendolyn 4 le} capsule by [place] sanna r-lutein-ze 00:00: mouth 2 st axan 00 (two) (PRESERVISI times a ON AREDS-2) day. 250-200-40- 1 mg-unit-mg- mg capsule aspirin 2013-0 2020- No [place] (ADULT LOW 5-15 05-15 Methodi DOSE 00:00: 00:00 st ASPIRIN) 81 00 :00 MG enteric coated tablet Vital Signs Vital Name Observation Time Observation Value Comments Source Systolic blood 2020-04-10 11:11:00 108 mm[Hg] Estellato n Muslim pressure Diastolic blood 2020-04-10 11:11:00 68 mm[Hg] An[place] on Muslim pressure Heart rate 2020-04-10 11:11:00 78 /min Kev Woods Body temperature 2020-04-10 11:11:00 37.11 Shiloh [place] Muslim Body height 2020-04-10 11:11:00 172.7 cm Kev Woods Body weight 2020-04-10 11:11:00 97.796 kg Kev Woods BMI 2020-04-10 11:11:00 32.78 kg/m2 Kev Woods Respiratory rate 2020-01-07 12:33:18 16 /min Estella Woods Oxygen saturation in 2020-01-07 12:33:18 95 /min Kev Woods Arterial blood by Pulse oximetry Procedures Procedure Date / Time Performing Clinician Source Performed COMPREHENSIVE METABOLIC 2020-03-28 09:24:00 Tigre Paul PANEL LIPID PANEL 2020-03-28 09:24:00 Tigre Paul TOTAL IRON BINDING 2020-03-28 09:24:00 Tigre Paul CAPACITY T4, FREE 2020-03-28 09:24:00 Tigre Paul THYROID STIMULATING 2020-03-28 09:24:00 Tigre Paul HORMONE HEMOGLOBIN A1C 2020-03-28 09:24:00 Tigre Paul PARATHYROID HORMONE 2020-03-28 09:24:00 Tigre Paul CBC WITH PLATELET AND 2020-03-28 09:24:00 Tigre Paul DIFFERENTIAL VITAMIN A LEVEL, PLASMA OR 2020-03-28 09:24:00 Tigre Paul SERUM VITAMIN B12 LEVEL 2020-03-28 09:24:00 Tigre Paul on Muslim VITAMIN D 25 HYDROXY LEVEL 2020-03-28 09:24:00 Tigre Paul COPPER LEVEL, SERUM 2020-03-28 09:24:00 Tigre Paul Bong lau Muslim FOLATE LEVEL 2020-03-28 09:24:00 Tigre Paul FERRITIN LEVEL 2020-03-28 09:24:00 Tigre Paul VITAMIN B1 LEVEL, WHOLE 2020-03-28 09:24:00 Tigre Paul BLOOD ZINC LEVEL, SERUM 2020-03-28 09:24:00 Tigre aPul on Muslim T3 2020-03-28 09:24:00 Tigre Paul XR SHOULDER 2+ VW RIGHT 2020-02-02 08:36:48 Emmett Melendrez HC COMPLETE BLD COUNT 2020-01-07 05:22:00 Tigre Paul W/AUTO DIFF BASIC METABOLIC PANEL 2020-01-07 05:22:00 Tigre Paul ESTIMATED GFR 2020-01-07 05:22:00 Tigre Paul HC COMPLETE BLD COUNT 2020-01-06 13:05:00 Tigre Paul W/AUTO DIFF BASIC METABOLIC PANEL 2020-01-06 13:05:00 Tigre Paul ESTIMATED GFR 2020-01-06 13:05:00 Tigre Paul POC GLUCOSE 2020-01-06 12:44:00 Tigre Paul TX AN ELECTIVE 2020-01-06 07:35:39 Toña Bailey ENDOTRACHEAL AIRWAY GASTROENTEROSTOMY, 2020-01-06 07:13:00 Tigre Paul RODOLFO-EN-Y, LAPAROSCOPIC, WITH INTRAOPERATIVE ENDOSCOPY POC GLUCOSE 2020-01-06 06:27:00 Tigre Paul HCG QUALITATIVE, URINE 2020-01-06 06:14:00 Tigre Paul SCREEN COVID BIOREF (NCOVB) 2019-12-28 14:25:00 Tigre Paul ECG 12-LEAD 2019-12-28 14:11:30 PaulTigre livingston TYPE AND SCREEN 2019-12-28 13:55:00 Tigre Paul BASIC METABOLIC PANEL 2019-12-28 13:55:00 Tigre Paul HC COMPLETE BLD COUNT 2019-12-28 13:55:00 Tigre Paul W/AUTO DIFF ESTIMATED GFR 2019-12-28 13:55:00 Tigre Paul AMB REFERRL TO HM WEIGHT 2019-11-11 13:55:02 Tigre Paul MANAGEMENT- BARIATRIC SERVICES US ABDOMEN COMPLETE 2019-11-02 08:08:32 Tigre Paul FERRITIN LEVEL 2019-10-27 09:46:00 Tigre Paul COMPREHENSIVE METABOLIC 2019-10-27 09:46:00 Tigre Paul PANEL LIPID PANEL 2019-10-27 09:46:00 Tigre Paul HCG QUALITATIVE, SERUM 2019-10-27 09:46:00 Tigre Paul SCREEN TOTAL IRON BINDING 2019-10-27 09:46:00 Tigre Paul CAPACITY T4, FREE 2019-10-27 09:46:00 Tigre Paul THYROID STIMULATING 2019-10-27 09:46:00 Tigre Paul HORMONE HEMOGLOBIN A1C 2019-10-27 09:46:00 Tigre Paul PARATHYROID HORMONE 2019-10-27 09:46:00 Tigre Paul CBC WITH PLATELET AND 2019-10-27 09:46:00 Tigre Paul DIFFERENTIAL PROTHROMBIN TIME WITH INR 2019-10-27 09:46:00 Tigre Paul PARTIAL THROMBOPLASTIN 2019-10-27 09:46:00 Tigre Paul Muslim TIME (PTT) VITAMIN A LEVEL, PLASMA OR 2019-10-27 09:46:00 Tigre Paul Muslim SERUM VITAMIN B12 LEVEL 2019-10-27 09:46:00 Tigre Paul on Muslim VITAMIN D 25 HYDROXY LEVEL 2019-10-27 09:46:00 Tigre Paul COPPER LEVEL, SERUM 2019-10-27 09:46:00 Tigre Paul Bong ston Muslim FOLATE LEVEL 2019-10-27 09:46:00 Tigre Paul VITAMIN B1 LEVEL, WHOLE 2019-10-27 09:46:00 Tigre Paul BLOOD ZINC LEVEL, SERUM 2019-10-27 09:46:00 Tigre Paul on Muslim T3 2019-10-27 09:46:00 Tigre Paul INSULIN, RANDOM 2019-10-27 09:46:00 Tigre Paul C-REACTIVE PROTEIN 2019-10-27 09:46:00 Tigre Paul Muslim URINALYSIS, AUTOMATED WITH 2019-10-27 09:46:00 Tigre Paul MICROSCOPY Plan of Care Planned Activity Planned Date Details Comments Source Future Scheduled 2020-03-25 INFLUENZA VACCINE [place] [facility] Test 00:00:00 [code = INFLUENZA VACCINE] Future Scheduled 1991 Screening for [facility] thodist Test 00:00:00 malignant neoplasm of cervix (procedure) [code = 729620234] Future Scheduled 1980 DIABETIC FOOT EXAM [place] [facility] Test 00:00:00 [code = DIABETIC FOOT EXAM] Future Scheduled 1980 URINE MICROALBUMIN [place] Test 00:00:00 [code = URINE MICROALBUMIN] Future Scheduled 1970 DIABETIC RETINAL EYE [place] Muslim Test 00:00:00 EXAM [code = DIABETIC RETINAL EYE EXAM] Encounters Start End Encounter Admission Attending Care Care Encounter Source Date/Time Date/Time Type Type Clinicians Facility Department ID 2020-04-10 2020-04-10 Outpatient PAUL, [facility] [id number] [place] 00:00:00 00:00:00 TIGRE [address] 2020-02-02 2020-02-02 Outpatient LIONBERGER, [facility] [id number] [place] 00:00:00 00:00:00 EMMETT [address] 2020-02-02 2020-02-02 Outpatient LIONBERGER, [facility] [id number] [place] 00:00:00 00:00:00 EMMETT [address] 2020-02-02 2020-02-02 Outpatient PAUL, [facility] [id number] [place] 00:00:00 00:00:00 TIGRE [address] 2020-01-12 2020-01-12 Outpatient PAUL, [facility] [id number] [place] 00:00:00 00:00:00 TIGRE [address] 2020-01-06 2020-01-07 Inpatient PAUL, [facility] [id number] [place] 00:00:00 00:00:00 TIGRE [address] 2019-12-28 2019-12-28 Outpatient PAUL, [facility] [id number] [place] 00:00:00 00:00:00 TIGRE [address] 2019-12-15 2019-12-15 Outpatient LIONBERGER, [facility] [id number] [place] 00:00:00 00:00:00 EMMETT [address] 2019-12-15 2019-12-15 Outpatient PAUL, [facility] [id number] [place] 00:00:00 00:00:00 TIGRE [address] 2019-11-11 2019-11-11 Outpatient PAUL, [facility] [id number] [place] 00:00:00 00:00:00 TIGRE [address] 2019-11-11 2019-11-11 Outpatient KATTEGUMMUL [facility] [id number] [place] 00:00:00 00:00:00 PEGGY Albert [address] 2019-11-04 2019-11-04 Outpatient LIONBERGER, [facility] [id number] [place] 00:00:00 00:00:00 EMMETT [address] 2019-11-02 2019-11-02 Outpatient HUMBERTO [facility] [id number] [place] 00:00:00 00:00:00 TIGRE [address] 2019-10-25 2019-10-25 Outpatient HUMBERTO [facility] [id number] [place] 00:00:00 00:00:00 TIGRE [address] 2018-12-16 2019-01-14 Outpatient Chacorta, [id number]. [id number] 07:00:00 23:59:00 Andriy [id number]. [id number] Devlin 3.615.61 5.61 [place] 2018-11-10 2018-12-09 Outpatient Chacorta, [id number]. [id number]. [id number] 07:06:00 23:59:00 Andriy [id number] Devlin 3.615.61 5.61 Story Results Test Description Test Time Test Comments Results Result Comments Source Comprehensive metabolic panel 2020-04-01 15:22:00 Test Item Value Reference Range Interpretation Comme nts Glucose (test code = 95 mg/dL 65-99 Fasting 2345-7) reference inter ramesh BUN (test code = 12 mg/dL 03-184-0) Creatinine (test code = 0.83 mg/dL 0.5-1.1 2160-0) EGFR Non-Afr. Iranian 83 > OR = 60 (test code = 2775) mL/min/1.73m2 EGFR 96 > OR = 60 (test code = 93935-8) mL/min/1.73m2 BUN/creatinine ratio NOT APPLICABLE (calc) (test code = 3097-3) Sodium (test code = 140 mmol/L 695-770 7383-2) Potassium (test code = 4.1 mmol/L 3.5-5.3 2823-3) Chloride (test code = 108 mmol/L 98-110 5-0) CO2 (test code = 24 mmol/L 20-32 8-9) Calcium (test code = 9.6 mg/dL 8.6-10.2 21965-0) Protein (test code = 6.6 g/dL 6.1-8.1 2885-2) Albumin, S (test code = 3.9 g/dL 3.6-5.1 1751-7) Globulin, total (test 2.7 1.9- 3.7 g/dL code = 82527-8) (calc) Albumin/globulin ratio 1.4 1.0- 2.5 (calc) (test code = 1759-0) Total bilirubin (test 0.4 mg/dL 0.2-1.2 code = 1974-2) Alkaline phosphatase 72 U/L 31-125 (test code = 6768-6) AST (test code = 16 U/L 10-35 1920-8) ALT (test code = 24 U/L 6-29 1742-6) SHANNAN (test code = SHANNAN) FASTING:YESFASTING: YES RAC (test code = RAC) Performing Organization Information: Site ID: RGA Name: [facility] Address: [address] [place] [phone] Director: Andrae Angulo MethodistLipid [id number] 15:22:00 Test Item Value Reference Range Interpretation Comments Cholesterol, total 149 mg/dL <200 (test code = 2093-3) HDL cholesterol 33 mg/dL > OR = 50 L (test code = 2084-9) Triglycerides (test 125 mg/dL <150 code = 2571-8) LDL cholesterol 93 mg/dL (calc) Reference ra nge: calculated (test <100 Desira ble code = 69297-0) range <100 m g/dL for primary prevention; <7 0 mg/dL for patients with C HD or diabetic patients with > or = 2 CHD risk factors. LDL-C is now calculated using the Jeremiah-Jose C calculation, which is a validated novel method providin g better accuracy than the Friedewald equation in the estimation of LDL-C. Jeremiah S S et al. KATIANA. 2013;310(19): 2609-1595 (http://educati on .QuestDiagnosti GreenGoose! .com/faq/DBK380 ) Cholesterol/HDL 4.5 <5.0 (calc) ratio (test code = 9830-1) Non-HDL cholesterol 116 <130 mg/dL For nakita ents with (test code = (calc) diabetes plus 1 06193-9) major ASCVD ris k factor, treatin g to a non-HDL-C goal of <100 mg/dL (LDL-C of <70 mg/dL) is considered a therapeutic option. SHANNAN (test code = FASTING:YESFASTING SHANNAN) : YES RAC (test code = Performing RAC) Organization Information: Site ID: MICHAEL Name: [facility] Address: [address] [place] [address] Director: Andrae Miguel Lab Interpretation Abnormal (test code = 22719-7) [place] MethodistVitamin B12 [id number] 15:22:00 Test Item Value Reference Range Interpretation Comments Vitamin B12 (test 426 pg/mL 200-1100 code = 2132-9) SHANNAN (test code = FASTING:YESFASTING: YES SHANNAN) RAC (test code = Performing Organization RAC) Information: Site ID: MICHAEL Name: [facility] Address: [address] [place] [address] Director: Andrae Miguel [place] MethodistFerritin [id number] 15:22:00 Test Item Value Reference Range Interpretation Comments Ferritin level (test 51 ng/mL 16-232 code = 2276-4) SHANNAN (test code = SHANNAN) FASTING:YESFASTING: YES RAC (test code = RAC) Performing Organization Information: Site ID: MICHAEL Name: [facility] Address: [address] [place] [address] Director: Andrae Miguel [place] MethodistFolate [id number] 15:22:00 Test Item Value Reference Range Interpretation Comments Folate (test >24.0 ng/mL code = 2284-8) Refer ence Range Lo w: <3.4 Borderline: 3.4-5.4 Normal: >5.4 SHANNAN (test code FASTING:YESFASTING: = SHANNAN) YES RAC (test code Performing = RAC) Organization Information: Site ID: MICHAEL Name: [facility] Address: [address] [place] [address] Director: Andrae Miguel [place] MethodistHemoglobin [id number] 15:22:00 Test Item Value Reference Range Interpretation Comments Hemoglobin A1C 5.6 <5.7 % of total For the pu rpose of (test code = Hgb screening for t he 4548-4) presence ofdiab etes: <5.7% Consistent with the absence of diabetes5.7-6.4 % Consistent with increased risk for diabetes (prediabetes)> or =6.5% Consiste nt with diabetes T his assay result is consistent with a decreased risko f diabetes. Curre ntly, no consensus ex ists regarding use ofhemoglobin A1 c for diagnosis of di abetes in children. According to [place] er[place] Diabetes Associ ation (ADA)guidelines , hemoglobin A1c <7.0% represents optimalcontrol in non- di abetic patients. Differentmetric s may apply to specif ic patient populat ions. Standards of Me dical Care in Diabetes(ADA). SHANNAN (test code = FASTING:YESFASTING SHANNAN) : YES RAC (test code = Performing RAC) Organization Information: Site ID: RGA Name: [facility] Address: [address] [place] [address] Director: Andrae WoodsParathyroid [id number] 15:22:00 Test Item Value Reference Interpretation Comments Range PTH (test 19 pg/mL 14-64 Interpretive G uide Intact code = PTH 2731-8) Calcium-------- -------Normal P arathyroid Normal NormalHypoparat hyroidism Low or Low Norm al LowHyperparathy roidism Primary Normal or High High Secondary High Normal or Low Tertiary High HighNon-Parathy roid Hypercalcemia Low or Low Normal High SHANNAN (test FASTING:YESFASTIN code = G: YES SHANNAN) RAC (test Performing code = Organization RAC) Information: Site ID: IG Name: [facility] Address: [address] [place] [address] Director: Dr. Andrae WoodsT4, [id number] 15:22:00 Test Item Value Reference Range Interpretation Comments T4, free (test code 1.0 ng/dL 0.8-1.8 = 3024-7) SHANNAN (test code = FASTING:YESFASTING: YES SHANNAN) RAC (test code = Performing Organization RAC) Information: Site ID: RGA Name: [facility] Address: [address] [place], [place] [id number] Director: Andrae Miguel Angulo MethodistThyroid stimulating [id number] 15:22:00 Test Item Value Reference Range Interpretation Comments TSH (test code 2.57 mIU/L = 3016-3) Reference Range > or = 20 Years 0.40-4.50 Range s First trimester 0.26-2.66 Second trimeste r 0.55-2.73 Third trimester 0.43-2.91 SHANNAN (test code FASTING:YESFASTING: = SHANNAN) YES RAC (test code Performing = RAC) Organization Information: Site ID: MICHAEL [facility] Address: [address] [place] [address] Director: Andrae [id number] 15:22:00 Test Item Value Reference Range Interpretation Comments T3 (test code = 119 ng/dL 76-181 3053-6) SHANNAN (test code = FASTING:YESFASTING: YES SHANNAN) RAC (test code = Performing Organization RAC) Information: Site ID: RGA [facility]: [facility] Address: [address] [place] [phone] Director: Andrae Miguel [place] [facility] with platelet and [id number] 15:22:00 Test Item Value Reference Range Interpretation Comments WBC (test code = 6.0 3.8- 10.8 6690-2) Thousand/uL RBC (test code = 5.09 3.80- 5.10 789-8) Million/uL HGB (test code = 14.6 g/dL 11.7-15.5 718-7) HCT (test code = 44.5 % 35-45 4544-3) MCV (test code = 87.4 fL 80-100 787-2) MCH (test code = 28.7 pg 27-33 785-6) MCHC (test code = 32.8 g/dL 32-36 786-4) RDW (test code = 14.2 % 11-15 788-0) Platelet count (test 187 140- 400 code = 777-3) Thousand/uL MPV (test code = 12.5 fL 7.5-12.5 776-5) Neutrophils, absolute 3774 1,500 - 7,800 (test code = 751-8) cells/uL Lymphocytes, absolute 1452 850- 3,900 (test code = 731-0) cells/uL Monocytes, absolute 612 200- 950 cells/uL (test code = 742-7) Eosinophils, absolute 120 15- 500 cells/uL (test code = 711-2) Basophils, absolute 42 0- 200 cells/uL (test code = 704-7) Neutrophils (test 62.9 % code = 770-8) Lymphocytes (test 24.2 % code = 736-9) Monocytes (test code 10.2 % = 5905-5) Eosinophils (test 2.0 % code = 713-8) Basophils + RC (test 0.7 % code = 706-2) SHANNAN (test code = SHANNAN) FASTING:YESFASTING: YES RAC (test code = RAC) Performing Organization Information: Site ID: RGA Name: [facility] Address: [address] [place] [address] Director: Andrae WoodsVitamin D 25 hydroxy [id number] 15:22:00 Test Item Value Reference Range Interpretation Comments Vitamin D, 52 ng/mL 30-100 Vitamin D Statu s 25-hydroxy 25-OH Gail min (test code = D: Deficiency: 1988-) < 20 ng/mLInsufficie ncy: 20 - 29 ng/mLOptimal: > or = 30 ng/mL For 25-OH Vitamin D testi ng on patients on D2-supplementat ion and patients fo r whom quantitati on of D2 and D3 fractions is required, the QuestAssureD(TM )25- OH VIT D, (D2,D 3), LC/MS/MS is recommended: or [place] code 29797 (patients >2yrs).See Note 1 Note 1 For additional information, pl ease refer to http://educatio n.Qu estDiagnostics. com/ faq/OLF453 (Thi s link is being provided for informational/e duca tional purposes only.) SHANNAN (test code FASTING:YESFASTING: = SHANNAN) YES RAC (test code Performing = RAC) Organization Information: Site ID: RGA Name: [facility] Address: [address] [place] [address] Director: Andrae Miguel [facility] MethodistVitamin A level, plasma or [id number] 15:22:00 Test Item Value Reference Range Interpretation Comments Vitamin A 44 38- 98 mcg/dL Clin Chem Vo l. (retinol) 34.No.8. [id number]. (test code = 1998Vitamin 2923-1) supplementation within 24 hours prior to blood draw m ay affect the accu racy of results. T his test was develo ped and its analyti lópez performance characteristics have been determined by [facility]. It has not been cl eared or approved by theFDA. This as say has been valida valerie pursuant to the CLIA regulations and is used for clinic al purposes. SHANNAN (test code FASTING:YESFASTING: = SHANNAN) YES RAC (test code Performing = RAC) Organization Information: Site ID: [facility] Name: [facility] Address: [address] [place] [address] Director: Vishnu Goodman M.D., Ph.D [facility] MethodistZinc level, [id number] 15:22:00 Test Item Value Reference Range Interpretation Comments Zinc (test 72 60- 130 mcg/dL This test wa s code = developed and i ts 5763-8) analytical perf ormance characteristics have been determined by [facility] . It has not been cl eared or approved by theFDA. This assay has been validated pursu ant to the CLIA regula tions and is used for clinical purpos es. SHANNAN (test FASTING:YESFASTING: code = SHANNAN) YES RAC (test Performing code = RAC) Organization Information: Site ID: [facility] Name: [facility] Address: [address] [place] [address] Director: Vishnu Goodman M.D., Ph.D [facility] MethodistVitamin B1 level, whole [id number] 15:22:00 Test Item Value Reference Range Interpretation Comments Vitamin B1, 169 nmol/L 78-185 Vitamin whole blood supplementation (test code = within 24 hours prior [address]-7) toblood draw ma y affect the accu racy of results. T his test was develo ped and its analyti lópez performance characteristics have been determined by [facility] . It has not been cl eared or approved by theA. This as say has been valida valerie pursuant to the CLIA regulations and is used for clinic al purposes. SHANNAN (test code FASTING:YESFASTING: = SHANNAN) YES RAC (test code Performing = RAC) Organization Information: Site ID: [facility] Name: [facility] Address: [id number] [place] [address] Director: Vishnu Goodman M.D., Ph.D [facility] MethodistCopper level, [id number] 15:22:00 Test Item Value Reference Range Interpretation Comments Copper (test 93 70- 175 mcg/dL This test wa s code = developed and i ts 5631-7) analytical perf ormance characteristics have been determined by [facility] . It has not been cl eared or approved by theA. This assay has been validated pursu ant to the CLIA regula tions and is used for clinical purpos es. SHANNAN (test FASTING:YESFASTING: code = SHANNAN) YES RAC (test Performing code = RAC) Organization Information: Site ID: [facility] Name: [facility] Address: [address] [place] [address] Director: Vishnu Goodman M.D., Ph.D [facility] MethodistTotal iron binding [id number] 15:22:00 Test Item Value Reference Range Interpretation Comments Iron level (test 87 40- 190 mcg/dL code = 2498-4) Iron binding 329 250- 450 mcg/dL capacity (test code (calc) = 2500-7) Iron saturation 26 16- 45 % (calc) (test code = 2502-3) SHANNAN (test code = FASTING:YESFASTING: SHANNAN) YES RAC (test code = Performing RAC) Organization Information: Site ID: [facility]GA Name: [facility] Address: [address] [place] [address] Director: Andrae Miguel Free[facility] MethodistBasic metabolic [id number] 06:28:30 Test Item Value Reference Range Interpretation Comments Sodium (test code = 2951-2) 141 135- 148 mEq/L Potassium (test code = 2823-3) 4.3 3.5- 5.0 mEq/L Chloride (test code = 2075-0) 104 98- 112 mEq/L CO2 (test code = 2027-9) 24 24- 31 mEq/L Anion gap (test code = 64513-3) 13@ANIO 7- 15 mEq/L BUN (test code = 3094-0) 12 mg/dL 6-20 Creatinine (test code = 2160-0) 0.80 mg/dL 0.5-0.9 Glucose (test code = 2345-7) 117 mg/dL 65-99 H Calcium (test code = 89139-5) 8.6 mg/dL 8.3-10.2 Lab Interpretation (test code = Abnormal 74135-8) Angulo MethodistEstimated [id number] 06:28:30 Test Item Value Reference Range Interpretation Comments Estimated GFR (test 86 mL/min/1.73 m2 Caterg ory Units code = 5488) InterpretationG 1 >=90 Normal or highG2 60-89 Mildly iclugmbiaI0d 45-59 Mildly to mode rately smwrorcaaB3n 30-44 Moderately to severely decreasedG4 15-29 Severely decre asedG5 <15 Kidn ey failureThe eGFR was calculated leia baldwin the Chronic Kidney Disease Epidemiology Co llaboration (CKD-EPI) equat ion. Interpretation is based on recommendations of the National Kidney Foundation-Kidn ey Disease Outcomes Qualit y Initiative (NKF-KDOQI) pub lished in 2014. [facility] [id number] 12:45:28 Test Item Value Reference Range Interpretation Comments POC glucose (test code = 169 mg/dL 65-99 H Ope rator Name: 28021-5) Kimberly le ID: [id number] Lab Interpretation (test Abnormal code = 23968-6) Kev [id number] 07:35:39Toña Bailey NP 01/06/2020 7:36 AMAirwayPerformed by: Toña Bailey NPAuthorized by: Steven Dunne MD Location: ORUrgency: ElectiveDifficult Airway: No Anesthesiologist: Steven Dunne MDResident/TEACHER DRAMATICS/AA: Toña Bailey, NPPerformed by: resident/TEACHER DRAMATICS/AAPreoxygenated with 100% O2: Yes Mask Ventilation: Easy maskFinal Airway Type: Endotracheal airwayFinal Endotracheal Airway: ETTTechnique Used: Direct laryngoscopyDevices/Methods Used in Placement: Intubating styletInsertion Site: OralBlade Type: MillerLaryngoscope Blade/Videolaryngoscope Blade Size: 2ETT Size (mm): 7.0Measured from: LipsETT to Lips (cm): 21Placement Verified by: CO2 detection, direct visualization and equal breath sounds Laryngoscopic view: Grade IIb - view of arytenoids or posterior of glottis onlyRapid Sequence Induction (RSI): No Number of Attempts at Approach: 1[facility] MethodisthCG qualitative, urine [id number] 07:03:10 Test Item Value Reference Range Interpretation Comments hCG qualitative, Negative Negative The quentin dc stated urine (test code = sensitivi ty of HcG test 2105-10) for serum is >/ = 10 mIU/ml and urine is >/ = 20mIU/ml. Free[facility] MethodisthCG qualitative, serum [id number] 10:26:00 Test Item Value Reference Range Interpretation Comments hCG NEGATIVE See Note: Reference qualitative, Range:Reference serum (test RangeNon-Pregna nt: code = 2109-12) NegativePregn ant: Positive SHANNAN (test code FASTING:YESFASTING: = SHANNAN) YES RAC (test code Performing = RAC) Organization Information: Site ID: RGA Name: [facility] Address: [address] [place] [address] Director: Andrae WoodsC-reactive [id number] 10:26:00 Test Item Value Reference Range Interpretation Comments CRP (test code = 4.3 mg/L <8.0 1987-5) SHANNAN (test code = FASTING:YESFASTING: YES SHANNAN) RAC (test code = Performing Organization RAC) Information: Site ID: RGA Name: [facility] Address: [address] [place] [address] Director: Andrae WoodsProthrombin time with [id number] 10:26:00 Test Item Value Reference Range Interpretation Comments INR (test code = 0.9 Reference R sergio 6301-6) 0.9-1.1Moderate -i ntensity Warfar in Therapy 2.0-3.0Higher-i nt ensity Warfarin Therapy 3.0-4 .0 Prothrombin time 9.6 9.0- 11.5 sec For more (test code = information on 5902-2) this test, go to:http://educa ti on.[employer].Yozons/faq/FAQ1 04 SHANNAN (test code = FASTING:YESFASTING: SHANNAN) YES RAC (test code = Performing RAC) Organization Information: Site ID: RGA Name: [facility] Address: [address] [place] [address] Director: Andrae Miguel Freehold MethodistPartial thromboplastin time, [id number] 10:26:00 Test Item Value Reference Interpretation Comments Range PTT (test 29 22- 34 sec This [place] = [place] [address]-3) monitoringunfra ctionated heparin therapy . For testing thatis validate d for this type of therapy , please referto the Hep mary ellen Anti-Xa assay ([place] [address]). For additional info rmation, please refer tohttp://educat ion.[employer].Yozons/faq/ NYI730(This link is being p rovided for informational/e ducational purposes only.) SHANNAN (test FASTING:YESFASTIN code = G: YES SHANNAN) RAC (test Performing code = Organization RAC) Information: Site ID: [facility]GA [facility] Address: [address] [place] [address] Director: Andrae Miguel Free[facility] MethodistUrinalysis, automated with [id number] 10:26:00 Test Item Value Reference Range Interpretation Comments Color, UA (test code = YELLOW YELLOW 5778-6) Appearance (test code CLEAR CLEAR = 5767-9) Specific gravity, 1.017 1.001-1.035 urine (test code = 5811-5) pH, urine (test code = 8.0 5.0-8.0 5803-2) Glucose, urine (test NEGATIVE NEGATIVE code = 43413-1) Bilirubin, UA (test NEGATIVE NEGATIVE code = 5770-3) Ketones, UA (test code NEGATIVE NEGATIVE = 2514-8) Occult blood, urine NEGATIVE NEGATIVE (test code = 5794-3) Protein, UA (test code NEGATIVE NEGATIVE = 24520-2) Nitrite, UA (test code NEGATIVE NEGATIVE = 5802-4) Leukocyte esterase, UA NEGATIVE NEGATIVE (test code = 5799-2) WBC, UA (test code = NONE SEEN < OR = 5 /HPF 5821-4) RBC, UA (test code = NONE SEEN < OR = 2 /HPF 57004-4) Squamous epithelial 0-5 < OR = 5 /HPF cells, UA (test code = 92484-1) Bacteria, UA (test NONE SEEN NONE SEEN /HPF code = 5769-5) Hyaline casts, UA NONE SEEN NONE SEEN /LPF (test code = 5796-8) SHANNAN (test code = SHANNAN) FASTING:YESFASTING: YES RAC (test code = RAC) Performing Organization Information: Site ID: RGA Name: [facility] Address: [address] [place] [address] Director: Andrae French, [id number] 10:26:00 Test Item Value Reference Range Interpretation Comments Insulin (test 17.8 uIU/mL Reference Range code = < or = 19.6 41601-0) Risk: Optim al < or = 19. 6 Moderate NA High >19.6 Adult cardiovascular event risk category cut points (optimal , moderate, high) are based on [employer] population data from 07/2011. This insulin as say shows strong cross-reactivit y forsome insulin analogs (lispro , aspart, and glargine)and mu ch lower cross-reactivit y with others (detemir,glulis ine). SHANNAN (test code FASTING:YESFASTING: = SHANNAN) YES RAC (test code Performing = RAC) Organization Information: Site ID: IG [facility] Address: [address] [place] [address] Director: Dr. Andrae KellyistUS Abdomen [id number] 08:18:03Hm Interface, Radiology Results - 11/02/2019 8:21 AM CDTEXAM: US ABDOMEN COMPLETETECHNIQUE: Grayscale and color Doppler sonographic evaluation of the abdomen.GIVEN INDICATION: E66.01 Morbid (severe) obesity due to excess calories, Z68.38 Body mass index (bmi) 38.0-38.9 adult, Cirrhosis or Fatty LiverCOMPARISON: None.IMPRESSION:Liver: The liver is normal in contour and echogenicity without focal mass or intrahepatic biliary ductal dilatation. Subcentimeter left hepatic lobe cyst.Ascites: None.Right pleural effusion: NoneGallbladder: There is no cholelithiasis.CBD: The common bile duct measures 5 mm, within normal limits.Portal vein: The portal vein is patent with hepatopetal flow. The main portal vein measures 1.0 cm in caliber.Pancreas: The visualized portions of the pancreas are within normal limits.Spleen: The spleen is homogeneous and not enlarged measuring 10.1 cm.Right Kidney: The right kidney is normal in size and echogenicity. There is no evidence of mass, calculi, or hydronephrosis. The right kidney measures 9.4 cm.Left Kidney: There is a 2.2 cm simple left renal cyst. The left kidney measures 10.1 cm.Aorta: Obscured by bowel gas.IVC: The visualized portions of theinferior vena cava are unremarkable.SUMMARY:Liver is normal in contour and echogenicity.[facility]-[id number] Muslim
[2020-06-10] MEDS ORDERED: MORPHINE 4 MG/ML SYR ONE (00:16)
[2020-06-10] MEDS ORDERED: ONDANSETRON 4 MG/2 ML VIAL ONE (00:16)
[2020-06-10] MEDS ORDERED: COLCHICINE 0.6 MG TAB ONE ×2 (00:19→01:33)
[2020-06-10 00:47] LABS: Absolute Lymphocytes (CBC) 2.2 K/uL (0.7-4.9); Basophils % 0.8 % (0-1.3); Hematocrit 43.7 % (36.0-45.0); Lymphocytes % 27.5 % (15.3-44.8); MPV 10.8 fL (7.6-11.3); RBC Red Blood Cell Count 4.87 M/uL (3.86-4.86)
[2020-06-10 01:04] LABS: Albumin 3.8 g/dL (3.4-5.0); Bilirubin Total 0.4 mg/dL (0.2-1.0); Potassium 3.7 mmol/L (3.5-5.1); Protein, Total 7.8 g/dL (6.4-8.2)
--- NOTE | 2020-06-10 01:08 | ER ---
Nurse's Notes [facility] Name: Sury Read Age: 49 yrs Sex: Female : 1970 Arrival Date: 06/09/2020 Time: 23:39 Bed 5 Private MD: Pasquale Escamilla R Diagnosis: Gout;Pain in foot and toes Presentation: 06/09 23:48 Chief complaint: Patient states: I have toe pain and swelling and redness that began at sg around 1600 today, worsening now, denies injury or trauma to the toe at this time. Coronavirus screen: Client denies travel out of the [place] in the last 14 days. At this time, the client does not indicate any symptoms associated with coronavirus-19. Ebola Screen: Patient negative for fever greater than or equal to 101.5 degrees Fahrenheit, and additional compatible Ebola Virus Disease symptoms Patient denies exposure to infectious person. Patient denies travel to an Ebola-affected area in the 21 days before illness onset. No symptoms or risks identified at this time. Initial Sepsis Screen: Does the patient meet any 2 criteria? No. Patient's initial sepsis screen is negative. Does the patient have a suspected source of infection? No. Patient's initial sepsis screen is negative. Risk Assessment: Do you want to hurt yourself or someone else? Patient reports no desire to harm self or others. Onset of symptoms was June 09, 2020. Care prior to arrival: None. Transition of care: patient was not received from another setting of care. 23:48 Acuity: RAE 4 sg 23:48 Method Of Arrival: Ambulatory sg Triage Assessment: 06/10 00:00 General: Appears in no apparent distress. comfortable, Behavior is calm, cooperative. mg2 [employer]: 01:38 LMP N/A - Post-menopause ll2 Historical: - Allergies: 06/09 23:51 Ursodiol; sg 23:51 Latex, Natural Rubber; sg 23:51 Codeine; sg - PSHx: 23:51 Gastric Bypass; Right Knee; sg 23:57 Neck Fusion C3-C6; sg - Immunization history:: Adult Immunizations up to date. - Social history:: Smoking status: Patient denies any tobacco usage or history of. - Family history:: not pertinent. Screenin/17 00:00 Abuse screen: Denies threats or abuse. Denies injuries from another. Nutritional mg2 screening: No deficits noted. Tuberculosis screening: No symptoms or risk factors identified. Fall Risk. Assessment: 06/09 23:59 Pain: Complains of pain in left sole of the big toe. Neuro: Level of Consciousness is mg2 awake, alert, obeys commands, Oriented to person, place, time, situation. Cardiovascular: Capillary refill < 3 seconds Patient's skin is warm and dry. Respiratory: Airway is patent Respiratory effort is even, unlabored, Respiratory pattern is regular, symmetrical. GI: No signs and/or symptoms were reported involving the gastrointestinal system. : No signs and/or symptoms were reported regarding the genitourinary system. EENT: No signs and/or symptoms were reported regarding the EENT system. Derm: Skin is intact, is healthy with good turgor, Skin is pink, warm \T\ dry. normal. Musculoskeletal: Circulation, motion, and sensation intact. Capillary refill < 3 seconds. Vital Signs: 23:50 BP 128 / 89; Pulse 89; Resp 18; Temp 98.9; Pulse Ox 99% on R/A; mg2 23:52 Weight 84.37 kg (R); Height 5 ft. 9 in. (175.26 cm) (R); sg 06/10 01:00 BP 110 / 64; Pulse 68; Resp 16; Pulse Ox 96% on R/A; ll2 06/09 23:52 Body Mass Index 27.47 (84.37 kg, 175.26 cm) sg ED Course: 06/09 23:39 Patient arrived in ED. am2 23:39 Pasquale Escamilla MD is Private Physician. am2 23:49 Octavio Escobar MD is Attending Physician. tano 23:49 Triage completed. sg 23:51 Arm band placed on. sg 06/10 00:00 Josee Teixeira, JOSH is Primary Nurse. ll2 00:00 Patient has correct armband on for positive identification. Pulse ox on. NIBP on. Door mg2 closed. Warm blanket given. 00:00 No provider procedures requiring assistance completed. mg2 00:17 Foot Left 3 View XRAY In Process Unspecified. EDMS 01:08 Pasquale Escamilla MD is Referral Physician. tano 01:08 Fermin Cedillo DPM is Referral Physician. tano 01:38 IV discontinued, intact, bleeding controlled, No redness/swelling at site. Pressure ll2 dressing applied. Administered Medications: 00:09 Drug: Colcrys 1.2 mg Route: PO; ll2 01:36 Follow up: Response: No adverse reaction ll2 00:38 Drug: Zofran (Ondansetron) 4 mg Route: IVP; Site: right antecubital; ll2 01:35 Follow up: Response: No adverse reaction ll2 00:39 Drug: morphine 4 mg Route: IVP; Site: right antecubital; ll2 01:36 Follow up: Response: No adverse reaction; RASS: Alert and Calm (0) ll2 01:35 Drug: Ancef 1 grams Route: IVPB; Site: right antecubital; ll2 01:35 Follow up: Response: No adverse reaction; IV Status: Completed infusion ll2 01:36 Drug: Colcrys 0.6 mg Route: PO; ll2 01:36 Follow up: Response: No adverse reaction ll2 Outcome: 01:08 Discharge ordered by MD. freedman 01:38 Discharged to home ambulatory. ll2 01:38 Condition: stable 01:38 Discharge instructions given to patient, Instructed on discharge instructions, follow up and referral plans. medication usage, Demonstrated understanding of instructions, follow-up care, medications, Prescriptions given X 3. 01:38 Patient left the ED. ll2 Signatures: Dispatcher [employer] EDRas Fleming RN Octavio Clemente MD MD cha Moreno, Amanda am2 Guillaume Woo RN RN mg2 [place], Lacie, RN RN ll2
--- NOTE | 2020-06-10 01:09 | EDPHYS ---
Physician Documentation [facility] Name: Sury Read Age: 49 yrs Sex: Female : 1970 Arrival Date: 06/09/2020 Time: 23:39 Bed 5 Private MD: Pasquale Escamilla R ED Physician Octavio Escobar HPI: 06/10 00:00 This 49 yrs old Female presents to ER via Ambulatory with complaints of Toe tano pain/swelling/redness Left Big Toe. 00:00 The patient presents with decreased range of motion, pain, that is acute. The tano complaints affect the left foot, left first toe. Context: The problem was sustained at an unknown location. Onset: The symptoms/episode began/occurred 1 day(s) ago. Modifying factors: The symptoms are alleviated by nothing, the symptoms are aggravated by nothing. Severity of symptoms: At their worst the symptoms were moderate, in the emergency department the symptoms are unchanged. The patient has not experienced similar symptoms in the past. 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 - Social history:: Smoking status: Patient denies any tobacco usage or history of. - Family history:: not pertinent. ROS: 06/10 00:00 Constitutional: Negative for fever, chills, and weight loss, Eyes: Negative for injury, tano pain, redness, and discharge, ENT: Negative for injury, pain, and discharge, Neck: Negative for injury, pain, and swelling, Cardiovascular: Negative for chest pain, palpitations, and edema, Respiratory: Negative for shortness of breath, cough, wheezing, and pleuritic chest pain, Abdomen/GI: Negative for abdominal pain, nausea, vomiting, diarrhea, and constipation, Back: Negative for injury and pain, : Negative for injury, bleeding, discharge, and swelling, Skin: Negative for injury, rash, and discoloration, Neuro: Negative for headache, weakness, numbness, tingling, and seizure, Psych: Negative for depression, anxiety, suicide ideation, homicidal ideation, and hallucinations, Allergy/Immunology: Negative for hives, rash, and allergies, Endocrine: Negative for neck swelling, polydipsia, polyuria, polyphagia, and marked weight changes, Hematologic/Lymphatic: Negative for swollen nodes, abnormal bleeding, and unusual bruising. MS/extremity: Positive for decreased range of motion, erythema, pain, of the plantar aspect of left first toe, ball of left foot and left first toe. Exam: 00:00 Constitutional: This is a well developed, well nourished patient who is awake, alert, tano and in no acute distress. Head/Face: Normocephalic, atraumatic. Eyes: Pupils equal round and reactive to light, extra-ocular motions intact. Lids and lashes normal. Conjunctiva and sclera are non-icteric and not injected. Cornea within normal limits. Periorbital areas with no swelling, redness, or edema. ENT: Nares patent. No nasal discharge, no septal abnormalities noted. Tympanic membranes are normal and external auditory canals are clear. Oropharynx with no redness, swelling, or masses, exudates, or evidence of obstruction, uvula midline. Mucous membranes moist. Neck: Trachea midline, no thyromegaly or masses palpated, and no cervical lymphadenopathy. Supple, full range of motion without nuchal rigidity, or vertebral point tenderness. No Meningismus. Chest/axilla: Normal chest wall appearance and motion. Nontender with no deformity. No lesions are appreciated. Cardiovascular: Regular rate and rhythm with a normal S1 and S2. No gallops, murmurs, or rubs. Normal PMI, no JVD. No pulse deficits. Respiratory: Lungs have equal breath sounds bilaterally, clear to auscultation and percussion. No rales, rhonchi or wheezes noted. No increased work of breathing, no retractions or nasal flaring. Abdomen/GI: Soft, non-tender, with normal bowel sounds. No distension or tympany. No guarding or rebound. No evidence of tenderness throughout. Back: No spinal tenderness. No costovertebral tenderness. Full range of motion. Skin: Warm, dry with normal turgor. Normal color with no rashes, no lesions, and no evidence of cellulitis. MS/ Extremity: Pulses equal, no cyanosis. Neurovascular intact. Full, normal range of motion. Neuro: Awake and alert, GCS 15, oriented to person, place, time, and situation. Cranial nerves II-XII grossly intact. Motor strength 5/5 in all extremities. Sensory grossly intact. Cerebellar exam normal. Normal gait. Psych: Awake, alert, with orientation to person, place and time. Behavior, mood, and affect are within normal limits. 00:00 Musculoskeletal/extremity: ROM: limited active range of motion due to pain, limited passive range of motion due to pain, Circulation is intact in all extremities. Sensation intact. Compartment Syndrome exam of affected extremity: is normal. Joints: the displays pain at rest, painful range of motion, swelling, tenderness, DVT Exam: negative Homans' sign noted on exam, no appreciated bluish discoloration, pain, swelling, tenderness, erythema, increased warmth. Vital Signs: 06/09 23:50 BP 128 / 89; Pulse 89; Resp 18; Temp 98.9; Pulse Ox 99% on R/A; mg2 23:52 Weight 84.37 kg (R); Height 5 ft. 9 in. (175.26 cm) (R); sg 06/10 01:00 BP 110 / 64; Pulse 68; Resp 16; Pulse Ox 96% on R/A; ll2 06/09 23:52 Body Mass Index 27.47 (84.37 kg, 175.26 cm) sg MDM: 06/09 23:49 Patient medically screened. [facility] 06/10 00:02 Differential diagnosis: fracture, sprain, penetrating trauma, arthritis, gout. Data tano reviewed: vital signs, nurses notes, lab test result(s), radiologic studies. Data interpreted: quality assurance monitor body: rate is 89 beats/min, rhythm is regular, Pulse oximetry: on room air is 99 %. Test interpretation: by ED physician or midlevel provider: plain radiologic studies. Counseling: I had a detailed discussion with the patient and/or guardian regarding: the historical points, exam findings, and any diagnostic results supporting the discharge/admit diagnosis, lab results, radiology results. 06/09 23:59 Order name: CBC with Diff; Complete Time: 01:06 [facility] 06/09 23:59 Order name: Comprehensive Metabolic Panel; Complete Time: 01:06 [facility] 06/09 23:59 Order name: Uric Acid; Complete Time: 01:06 [facility] 06/09 23:59 Order name: Foot Left 3 View XRAY [facility] 06/10 01:07 Order name: Ice pack; Complete Time: : [facility] Administered Medications: 00:09 Drug: Colcrys 1.2 mg Route: PO; ll2 01:36 Follow up: Response: No adverse reaction ll2 00:38 Drug: Zofran (Ondansetron) 4 mg Route: IVP; Site: right antecubital; ll2 01:35 Follow up: Response: No adverse reaction ll2 00:39 Drug: morphine 4 mg Route: IVP; Site: right antecubital; ll2 01:36 Follow up: Response: No adverse reaction; RASS: Alert and Calm (0) ll2 01:35 Drug: Ancef 1 grams Route: IVPB; Site: right antecubital; ll2 01:35 Follow up: Response: No adverse reaction; IV Status: Completed infusion ll2 01:36 Drug: Colcrys 0.6 mg Route: PO; ll2 01:36 Follow up: Response: No adverse reaction 2 Disposition: 06/10/20 01:08 Discharged to Home. Impression: Gout, Pain in foot and toes. - Condition is Stable. - Discharge Instructions: Gout, Gout, [id number]. - Prescriptions for Colchicine- Probenecid 0.5-500 mg Oral Tablet - take 1 tablet by ORAL route every 1 hour up to 3 hours; 3 tablet. Tramadol 50 mg Oral Tablet - take 1 tablet by ORAL route every 8 hours as needed; 20 tablet. Keflex 500 mg Oral Capsule - take 1 capsule by ORAL route every 6 hours for 10 days; 28 capsule. - Medication Reconciliation Form, Thank You Letter, Antibiotic Education, Prescription Opioid Use form. - Follow up: Pasquale Escamilla; When: 2 - 3 days; Reason: Recheck today's complaints, Continuance of care, Re-evaluation by your physician. Follow up: Dr. Fermin Cedillo; When: 2 - 3 days; Reason: Recheck today's complaints, Re-evaluation by your physician. - Problem is new. - Symptoms have improved. Signatures: Dispatcher [employer] EDMS Ras James RN RN sg Anderson, Corey, MD MD cha Linscombe, Lacie, RN RN ll2 Corrections: (The following items were deleted from the chart) : 01:08 06/10/2020 01:08 Discharged to Home. Impression: Gout. Condition is Stable. [facility] Discharge Instructions: Gout, Gout, [id number]. Prescriptions for Colchicine-Probenecid 0.5-500 mg Oral Tablet - take 1 tablet by ORAL route every 1 hour up to 3 hours; 3 tablet, Tramadol 50 mg Oral Tablet - take 1 tablet by ORAL route every 8 hours as needed; 20 tablet. and Forms are Medication Reconciliation Form, Thank You Letter, Antibiotic Education, Prescription Opioid Use. Follow up: Pasquale Escamilla; When: 2 - 3 days; Reason: Recheck today's complaints, Continuance of care, Re-evaluation by your physician. Follow up: Dr. Fermin Cedillo; When: 2 - 3 days; Reason: Recheck today's complaints, Re-evaluation by your physician. Problem is new. Symptoms have improved. [facility] 01:38 01:08 06/10/2020 01:08 Discharged to Home. Impression: Gout; Pain in foot and toes. ll2 Condition is Stable. Discharge Instructions: Gout, Gout, [id number]. Prescriptions for Colchicine-Probenecid 0.5-500 mg Oral Tablet - take 1 tablet by ORAL route every 1 hour up to 3 hours; 3 tablet, Tramadol 50 mg Oral Tablet - take 1 tablet by ORAL route every 8 hours as needed; 20 tablet. and Forms are Medication Reconciliation Form, Thank You Letter, Antibiotic Education, Prescription Opioid Use. Follow up: Pasquale Escamilla; When: 2 - 3 days; Reason: Recheck today's complaints, Continuance of care, Re-evaluation by your physician. Follow up: Dr. Fermin Cedillo; When: 2 - 3 days; Reason: Recheck today's complaints, Re-evaluation by your physician. Problem is new. Symptoms have improved. tano
[2020-06-10] MEDS ORDERED: CEFAZOLIN SODIUM 1 GM/VIAL ONE (01:33)
[2020-06-10 01:50] VITALS: TEMP 98.9
[2020-06-10 01:59] VITALS: BP 110/64; O2SAT 96
--- NOTE | 2020-06-10 08:47 | RAD REPORT ---
EXAM DESCRIPTION: RAD - Foot Left 3 View - 06/10/2020 12:19 am CLINICAL HISTORY: PAINsoft tissue swelling or redness of the first toe COMPARISON: No comparisons FINDINGS: No fracture, dislocation or periosteal reaction. No acute or destructive bony process. No air or foreign body in the soft tissues. IMPRESSION: Negative left foot examination.
== END 2020-06-10 01:38 | disposition home or self-care (01) ==
LOC: ER 23:38
DX: M10.9 Gout, unspecified (principal); Z88.6 Allergy status to analgesic agent; Z91.040 Latex allergy status
CPT/HCPCS: 85025; 36415; 84550; 80053; 73630; 96375; 96374; 99284; J2405; J0690